=== PATIENT | female | born 1955 | race Caucasian/White ===

== ENCOUNTER → 2017-06-26 | Outpatient (CLI) | payer BC, OTHER ==
[~2017-06-26] MED LIST: SIMV10TA2 PO
--- NOTE | 2017-06-26 16:11 | MAMMOGRAPHY REPORT ---
BILATERAL DIGITAL SCREENING MAMMOGRAM TOMOSYNTHESIS WITH CAD: 06/26/2017 TECHNIQUE: Breast tomosynthesis in addition to standard 2D mammography was performed. Current study was also evaluated with a Computer Aided Detection (CAD) system. COMPARISON: Comparison is made to exams dated: 06/08/2015 mammogram, 06/25/2016 mammogram, 05/11/2014 satish mogram, 05/02/2014 mammogram, 04/13/2013 mammogram, and 03/18/2012 mammogram - [facility]. BREAST COMPOSITION: There are scattered areas of fibroglandular density in both breasts. FINDINGS: No suspicious masses, calcifications, or areas of architectural distortion are noted in ei ther breast. There has been no significant interval change compared to prior exams. IMPRESSION: ACR BI-RADS CATEGORY 1: NEGATIVE There is no mammographic evidence of malignancy. A 1 year screening mammogram is recommended. The pa tient will receive written notification of the results. Approximately 10% of breast cancers are not detected with mammography. A negative mammographic report should not delay biopsy if a clinically suggestive mass is present. Nava Kaur M.D. ah/:06/26/2017 15:57:08 C [employer] Developer: Adriana MERINO(R)(M), [facility] letter sent: Normal 1/2 BI-RADS Code: ACR BI-RADS Category 1: Negative
== END | disposition home or self-care (01) ==
LOC: C.MAMM 09:37
PROVIDERS: ATTEND Family Medicine
DX: Z12.31 Encounter for screening mammogram for malignant neoplasm of breast (principal)

== ENCOUNTER → 2017-08-20 | Outpatient (CLI) | payer BC, OTHER ==
--- NOTE | 2017-08-20 11:46 | DIAGNOSTIC IMAGING REPORT ---
ABDOMEN COMPLETE (US) CLINICAL HISTORY: Abdominal pain. COMPARISON STUDY: No previous studies for comparison. FINDINGS: Liver morphology is normal. Two right hepatic lobe echogenic lesions are noted. The largest lesion measures 2.8 x 2 x 1.7 cm. No color flow is identified within these lesions. The pancreas is within normal limits by sonography. There is no biliary ductal dilatation. The common bile duct measures 6 mm in caliber. The gallbladder is normal. No gallstones are identified. The sizes spleen is normal. The caliber of the abdominal aorta is normal. The right kidney measures 9.1 cm in maximal dimension and the left measures 10.5 cm. There is no hydronephrosis. No calculi or masses are identified within the kidneys by sonography. IMPRESSION: 1. Two echogenic right hepatic lobe lesions which measure up to 2.8 cm. The sonographic appearance favors hemangiomas, particularly in the absence of known malignancy. An MRI of the liver is recommended for confirmation. 2. No gallstones or biliary ductal dilatation. Electronically signed by: Zackary López M.D. 08/20/2017 11:44 AM Dictated Date/Time: 08/20/2017 11:40 AM
== END | disposition home or self-care (01) ==
LOC: C.ULTR 10:32
PROVIDERS: ATTEND Family Medicine
DX: R19.00 Intra-abdominal and pelvic swelling, mass and lump, unspecified site (principal); K76.9 Liver disease, unspecified

== ENCOUNTER → 2017-08-27 | Outpatient (CLI) | payer BC, OTHER | END | disposition home or self-care (01) | LOC: C.PAPS 11:04 | PROVIDERS: ATTEND Family Medicine | DX: Z01.419 Encounter for gynecological examination (general) (routine) without abnormal findings (principal) ==

== ENCOUNTER → 2018-01-05 | Outpatient (CLI) | payer OTHER | END | disposition home or self-care (01) | LOC: C.MAMM 10:53 | PROVIDERS: ATTEND Family Medicine | DX: M85.89 Other specified disorders of bone density and structure, multiple sites (principal) ==

== ENCOUNTER → 2018-02-06 | Outpatient (CLI) | payer OTHER ==
--- NOTE | 2018-02-06 11:08 | DIAGNOSTIC IMAGING REPORT ---
ABDOMINAL ULTRASOUND, RIGHT UPPER QUADRANT HISTORY: Liver hemangioma. COMPARISON: Abdominal ultrasound August 20, 2017. FINDINGS: Liver morphology is normal. There is no biliary ductal dilatation. Two echogenic hepatic lesions are again noted, the largest of which measures 2.8 x 2.4 x 2.5 cm. Comparison by sonography is difficult however these lesions are similar to exam of August 20, 2017. No color flow is identified within these lesions. No new lesions are identified. The gallbladder is normal. There is no right hydronephrosis. Pancreatic body is normal. Head and tail are slightly obscured. IMPRESSION: 1. Redemonstration of 2 echogenic hepatic lesions. Comparison by sonography is difficult however no definite change since exam of August 20, 2017. The sonographic appearance favors hemangiomas. A follow-up ultrasound in one year to ensure stability is recommended as these remain indeterminate. 2. No gallstones or biliary ductal dilatation. Electronically signed by: Zackary López M.D. 02/06/2018 11:06 AM Dictated Date/Time: 02/06/2018 11:01 AM
== END | disposition home or self-care (01) ==
LOC: C.ULTR 09:56
PROVIDERS: ATTEND Nurse Practitioner Family
DX: D18.03 Hemangioma of intra-abdominal structures (principal)